=== PATIENT | male | born 1985 | race Caucasian/White ===

== ENCOUNTER 2017-10-09 15:19 | Emergency (ER) | payer BC ==
--- NOTE | 2017-10-09 15:42 | ED Physician Documentation ---
General Adult - HISTORIAN Historian: patient - HPI Stated Complaint: Head Injury Chief Complaint: Head Injury Onset: hours (1) Timing: still present Severity: mild Further Comments: yes (He states he was digging and hit with a pole digger. he denies any LOC. He states "it did ring my padgett" but states he was observed by (she is present) he does note the area is painful. He denies any other complaints. He is flying to [place] tomorrow.) Last known Well Code/Unknown Code: Unknown - ROS CONST: no problems MS/SKIN/LYMPH: none NEURO/PSYCH: headache - PAST HX Past History: none Surgeries/Procedures: none Immunizations: UTD - SOCIAL HX Smoking History: non-smoker Alcohol Use: none Drug Use: none - FAMILY HX Family History: No - VITAL SIGNS Vital Signs: Vital Signs Temp Pulse Resp BP Pulse Ox 98.1 F 96 H 18 135/79 99 10/09/17 15:20 10/09/17 15:20 10/09/17 15:20 10/09/17 15:20 10/09/17 15:20 - REVIEWED ASSESSMENTS Nursing Assessment Reviewed: Yes Vitals Reviewed: Yes Progress - Progress Progress: 1630: area is cleaned. Discussed the option if the bleeding started - hold pressure and dressing supplies. He is aware. DG ED Results Lab/Radiology - Radiology Radiology Impressions: TECHNIQUE: 5 mm contiguous axial images of the brain, noncontrast. FINDINGS: There is no evidence of intracranial mass effect, hemorrhage, or acute hydrocephalus. The lateral ventricles are symmetrical and the 4th ventricle is midline without shift. No acute brain parenchymal changes or extra-axial fluid collections are identified. The posterior fossa contents are within normal limits. The calvarium is intact. The visualized sinuses and mastoid air cells are clear. IMPRESSION: No acute intracranial process. Electronically signed on Oct 09, 2017 4:22:22 PM CDT by: Drake Castillo - Orders Orders: ED Orders Category Date Time Status CT BRAIN W/O CONTRAST Stat Exams 10/09/17 Ordered General Adult Physical Exam - PHYSICAL EXAM GENERAL APPEARANCE: no distress EENT: eye inspection normal, ENT inspection normal, no signs of dehydration, NADIA NECK: normal inspection RESPIRATORY: no resp distress, chest non-tender, breath sounds normal CVS: reg rate & rhythm, heart sounds normal, equal pulses, no murmur ABDOMEN: soft, no distension BACK: normal inspection SKIN: warm/dry, other (top right lateral area on scalp with less that 1 cm area . ) EXTREMITIES: non-tender, normal range of motion, no evidence of injury, no edema NEURO: oriented X3, CN's nml as tested, motor nml, sensation nml, mood/affect nml, cognition normal Discharge Clincal Impression: Laceration of head Qualifiers: Encounter type: initial encounter Location of open wound of head: scalp Foreign body presence: without foreign body Qualified Code(s): S01.01XA - Laceration without foreign body of scalp, initial encounter Referrals: Primary Doctor,No [Primary Care Provider] - 2 Days Comments: 1. Monitor for any change in level of consciousness, nausea, severe headache - return to ER 2. Keep area clean and dry 3. See PCP in 2-4 days 4. Return to ER for any concerns Condition: Stable Disposition: 01 HOME, SELF-CARE Decision to Admit: NO Date of Decison to Admit: 10/09/17 Decision Time: 16:38
--- NOTE | 2017-10-09 16:48 | Diagnostic Imaging Report ---
CALLIE CORONA [facility] [address] [facility] [address] [place], [place]. [address] Report Submission Date: Oct 09, 2017 4:22:22 PM CDT Patient Study Name: MARIA LUISA NUÑEZ Date: Oct 09, 2017 4:01:52 PM CDT Modality Type: CT\SR Gender: M Description: CT BRAIN W/O CONTRAST : 81 Institution: [facility] Physician: CALLIE CORONA CT brain noncontrast Date of study: October 09, 2017 CLINICAL HISTORY: PT HIT HEAD ON POST, HEADACHE (Hx) / ITS.REASON Head injury Note time : 10/09/2017 5:11:39 PM User : Christianne Beckwith PT HIT HEAD ON POST, HEADACHE (DICOM Hx) TECHNIQUE: 5 mm contiguous axial images of the brain, noncontrast. FINDINGS: There is no evidence of intracranial mass effect, hemorrhage, or acute hydrocephalus. The lateral ventricles are symmetrical and the 4th ventricle is midline without shift. No acute brain parenchymal changes or extra-axial fluid collections are identified. The posterior fossa contents are within normal limits. The calvarium is intact. The visualized sinuses and mastoid air cells are clear. IMPRESSION: No acute intracranial process. Electronically signed on Oct 09, 2017 4:22:22 PM CDT by: Drake BAZZI
[2017-10-09 17:00] VITALS: BP 101/67
== END 2017-10-09 16:58 | disposition home or self-care (01) ==
LOC: ED 15:19
DX: S01.01XA Laceration without foreign body of scalp, initial encounter (principal); W22.8XXA Striking against or struck by other objects, initial encounter; Y92.9 Unspecified place or not applicable; Y93.H1 Activity, digging, shoveling and raking; Y99.9 Unspecified external cause status
CPT/HCPCS: 70450